=== PATIENT | male | born 1985 | race Caucasian/White ===

== ENCOUNTER 2016-08-08 20:12 | Emergency (ER) | payer OTHER ==
[2016-08-08 20:26] VITALS: TEMP 98.2; O2SAT 95
--- NOTE | 2016-08-08 20:27 | EDPHY ---
H & P Time Seen by Provider: 08/08/16 20:23 HPI/ROS: CHIEF COMPLAINT: Fever, body aches HISTORY OF PRESENT ILLNESS: Patient is a 31-year-old man who comes to the emergency department complaining of a subjective fever, chills and body aches that began this morning. He has felt slightly nauseous but has not vomited. He does have a dry cough. He has been drinking a lot of fluids. He denies abdominal pain or dysuria or diarrhea. No chest pain or shortness of breath. No sore throat, mild sinus congestion that he attributes to allergies. No headaches, no neck stiffness. REVIEW OF SYSTEMS: Constitutional: See HPI EENTM: denies: blurred vision, double vision, Respiratory: denies: cough, shortness of breath Cardiac: denies: chest pain, irregular heart rate, lightheadedness, palpitations Gastrointestinal/Abdominal: denies: abdominal pain, diarrhea, nausea, vomiting, blood streaked stools Genitourinary: denies: dysuria, frequency, hematuria, pain Musculoskeletal: denies: joint pain, muscle pain Skin: denies: lesions, rash, jaundice, bruising Neurological: denies: headache, numbness, paresthesia, tingling, dizziness, weakness Hematologic/Lymphatic: denies: blood clots, easy bleeding, easy bruising Immunologic/allergic: denies: HIV/AIDS, transplant EXAM: GENERAL: Well-appearing, well-nourished and in no acute distress. HEAD: Atraumatic, normocephalic. EYES: Pupils equal round and reactive to light, extraocular movements intact, sclera anicteric, conjunctiva are normal. ENT: TMs normal, nares patent, oropharynx clear without exudates. Moist mucous membranes. NECK: Normal range of motion, supple without lymphadenopathy or JVD. LUNGS: Breath sounds clear to auscultation bilaterally and equal. No wheezes rales or rhonchi. HEART: Regular rate and rhythm without murmurs, rubs or gallops. ABDOMEN: Soft, nontender, normoactive bowel sounds. No guarding, no rebound. No masses appreciated. BACK: No CVA tenderness, no spinal tenderness, step-offs or deformities EXTREMITIES: Normal range of motion, no pitting or edema. No clubbing or cyanosis. NEUROLOGICAL: Cranial nerves II through XII grossly intact. Normal speech, normal gait. 5/5 strength, normal movement in all extremities, normal sensation PSYCH: Normal mood, normal affect. SKIN: Warm, dry, normal turgor, no visible rashes or lesions. Source: Patient Exam Limitations: No limitations - Medical/Surgical History Hx Asthma: No Hx Chronic Respiratory Disease: No Hx Diabetes: No Hx Cardiac Disease: No Hx Renal Disease: No Hx Cirrhosis: No Hx Alcoholism: No Hx HIV/AIDS: No - Family History Significant Family History: No pertinent family hx - Social History Alcohol Use: Sober Drug Use: None Constitutional: Initial Vital Signs Temperature (C) 36.8 C 08/08/16 20:24 Heart Rate 93 08/08/16 20:24 Respiratory Rate 15 08/08/16 20:24 Blood Pressure 92/69 L 08/08/16 20:24 O2 Sat (%) 95 08/08/16 20:24 O2 Delivery Mode Room Air Allergies/Adverse Reactions: No Known Allergies Allergy (Unverified 08/08/16 20:24) Home Medications: Medication Instructions Recorded Ondansetron Odt [Zofran Odt 4 mg 4 mg PO Q4 PRN #10 tab 08/08/16 (RX)] Medical Decision Making ED Course/Re-evaluation: 9:00 p.m. we discussed the patient's lab results. He is currently asymptomatic. His blood pressure is better in the room 106/80. He is tolerating fluids. I recommended hydration, rest, antipyretics and will prescribe Zofran to use if needed. He and his understand and agree with this plan. His states that he has had intermittent illness every few weeks for the last 2 months since they returned from [place]. They were not anywhere exposed to malaria. No rashes. No headaches. We discussed indications for returning and for follow-up. Differential Diagnosis: Partial list of the Differential diagnosis considered include but were not limited to; viral syndrome, fever, nausea and although unlikely based on the history and physical exam, I also considered meningitis, sepsis, pneumonia, urinary tract infection, appendicitis. I discussed these differential diagnoses and the plan with the patient as well as the usual and expected course. The patient understands that the diagnosis is provisional and that in medicine we are not always correct and that further workup is often warranted. Usual and customary warnings were given. All of the patient's questions were answered. The patient was instructed to return to the emergency department should the symptoms at all worsen or return, otherwise to followup with the physician as we discussed. - Data Points Laboratory Results: 08/08/16 20:30 Influenza A,B Rapid NEGATIVE FOR FLU (NEGATIVE) Medications Given: Discontinued Medications Ondansetron HCl (Zofran Odt 4 Mg Prepack#2) 1 btl TAKEHOME EDNOW ONE Stop: 08/08/16 20:57 Last Admin: 08/08/16 21:06 Dose: 1 btl Departure - Departure Disposition: Home, Routine, Self-Care Clinical Impression: Viral syndrome Condition: Fair Instructions: Ondansetron (By mouth), Viral Syndrome (ED) Referrals: NONE *PRIMARY CARE P,. [Primary Care Provider] - As per Instructions Regina Jimenez DO [Doctor of Osteopathy] - As per Instructions Prescriptions: Ondansetron Odt [Zofran Odt 4 mg (RX)] 4 mg PO Q4 PRN #10 tab PRN Reason: Nausea & Vomiting
[2016-08-08] MEDS ORDERED: ONDANSETRON 4MG PREPACK#2 BTL TAKEHOME ONE (20:56)
[2016-08-08 21:07] VITALS: BP 106/60; PULSE 82; RESP 16
== END 2016-08-08 21:07 | disposition home or self-care (01) ==
LOC: CED 20:12
DX: B34.9 Viral infection, unspecified (principal)
CPT/HCPCS: 87400-PO